=== PATIENT | female | born 1940 | race Caucasian/White ===

== ENCOUNTER 2017-08-10 19:19 | Emergency (ER) | payer OTHER, BC ==
--- NOTE | 2017-08-10 19:38 | EDPHY ---
H & P Stated Complaint: R leg pain and swelling Time Seen by Provider: 08/10/17 19:29 HPI/ROS: CHIEF COMPLAINT: Right leg swelling HISTORY OF PRESENT ILLNESS: The patient is a 77-year-old female who comes to the emergency department complaining of some mild swelling in her right leg as well as pain in hamstring and calf area. This began 2 days ago. She flew here today and is visiting her mother. No fever. No rash. No injury. She does take aspirin daily. She has history of TIA and peptic ulcer disease. She does have a history of chronic low back pain with bulging discs. She denies weakness numbness or paresthesias. No bowel or bladder abnormalities. REVIEW OF SYSTEMS: Constitutional: denies: chills, fever, recent illness, recent injury EENTM: denies: blurred vision, double vision, nose congestion Respiratory: denies: cough, shortness of breath Cardiac: denies: chest pain, irregular heart rate, lightheadedness, palpitations Gastrointestinal/Abdominal: denies: abdominal pain, diarrhea, nausea, vomiting, blood streaked stools Genitourinary: denies: dysuria, frequency, hematuria, pain Musculoskeletal: See HPI Skin: denies: lesions, rash, jaundice, bruising Neurological: denies: headache, numbness, paresthesia, tingling, dizziness, weakness Hematologic/Lymphatic: denies: blood clots, easy bleeding, easy bruising Immunologic/allergic: denies: HIV/AIDS, transplant EXAM: GENERAL: Well-appearing, well-nourished and in no acute distress. HEAD: Atraumatic, normocephalic. EYES: Pupils equal round and reactive to light, extraocular movements intact, sclera anicteric, conjunctiva are normal. ENT: TMs normal, nares patent, oropharynx clear without exudates. Moist mucous membranes. NECK: Normal range of motion, supple without lymphadenopathy or JVD. LUNGS: Breath sounds clear to auscultation bilaterally and equal. No wheezes rales or rhonchi. HEART: Regular rate and rhythm without murmurs, rubs or gallops. ABDOMEN: Soft, nontender, normoactive bowel sounds. No guarding, no rebound. No masses appreciated. BACK: No CVA tenderness, no spinal tenderness, step-offs or deformities EXTREMITIES: Rate leak no visible swelling or edema. Some pain to hamstring and calf, denies pain at her knee or ankle. NEUROLOGICAL: Cranial nerves II through XII grossly intact. Normal speech, normal gait. 5/5 strength, normal movement in all extremities, normal sensation PSYCH: Normal mood, normal affect. SKIN: Warm, dry, normal turgor, no visible rashes or lesions. Source: Patient - Personal History Current Tetanus/Diphtheria Vaccine: Yes - Medical/Surgical History Hx Asthma: No Hx Chronic Respiratory Disease: No Hx Diabetes: No Hx Cardiac Disease: No Hx Renal Disease: No Hx Cirrhosis: No Hx Alcoholism: No Hx HIV/AIDS: No Hx Splenectomy or Spleen Trauma: No Other PMH: diverticulitis, TIA 20 years ago, - Family History Significant Family History: No pertinent family hx - Social History Smoking Status: Never smoked Alcohol Use: Sober Drug Use: None Constitutional: Initial Vital Signs Temperature (C) 36.7 C 08/10/17 19:22 Heart Rate 81 08/10/17 19:22 Respiratory Rate 16 08/10/17 19:22 Blood Pressure 152/86 H 08/10/17 19:22 O2 Sat (%) 93 08/10/17 19:22 O2 Delivery Mode Room Air Allergies/Adverse Reactions: Penicillins Allergy (Verified 08/10/17 19:24) Home Medications: Medication Instructions Recorded Aspirin 08/10/17 Ketorolac Tromethamine 10 mg PO Q6H PRN #16 tab 08/10/17 Linzess 08/10/17 Omeprazole 08/10/17 predniSONE 60 mg PO DAILY #15 tab 08/10/17 Medical Decision Making - Diagnostics Imaging: Discussed imaging studies w/ call center operator Radiologist ED Course/Re-evaluation: We discussed her ultrasound results which are reassuring. Patient denies any fall or trauma. We discussed possibly x-ray ring her knee or hip but she declines. She is able to ambulate but with pain here in the department. She has full strength and range of motion. I suspect that she may be beginning to have a radiculopathy from her chronic low back pain and bulging discs. We agreed to try steroids and anti-inflammatories and pain medication. She does not wish to have further imaging currently. I advised her to return if her symptoms are worsening instead of improving or she develops any weakness or paralysis bowel or bladder abnormalities. She and her family agree with this plan. Differential Diagnosis: Partial list of the Differential diagnosis considered include but were not limited to; sciatica, DVT and although unlikely based on the history and physical exam, I also considered infection, fracture, dislocation, tendonitis. I discussed these differential diagnoses and the plan with the patient as well as the usual and expected course. The patient understands that the diagnosis is provisional and that in medicine we are not always correct and that further workup is often warranted. Usual and customary warnings were given. All of the patient's questions were answered. The patient was instructed to return to the emergency department should the symptoms at all worsen or return, otherwise to followup with the physician as we discussed. - Data Points Laboratory Results: Laboratory Results 08/10/17 19:50 08/10/17 19:50 Medications Given: Discontinued Medications Ketorolac Tromethamine (Toradol) 30 mg IVP EDNOW ONE Stop: 08/10/17 20:55 Last Admin: 08/10/17 21:09 Dose: 30 mg Methylprednisolone Sodium Succinate (Solu-Medrol) 125 mg IVP EDNOW ONE Stop: 08/10/17 20:54 Last Admin: 08/10/17 21:12 Dose: 125 mg Departure - Departure Disposition: Home, Routine, Self-Care Clinical Impression: Right leg pain Condition: Fair Instructions: Lumbar Radiculopathy (ED) Referrals: NONE *PRIMARY CARE P,. [Primary Care Provider] - As per Instructions Juan F Hope MD [Medical Doctor] - As per Instructions Prescriptions: Ketorolac Tromethamine 10 mg PO Q6H PRN #16 tab PRN Reason: Pain/inflammation predniSONE 60 mg PO DAILY #15 tab
[2017-08-10 19:57] LABS: PLATELET COUNT 232 10^3/uL (150-400)
[2017-08-10 20:14] LABS: INR 1.05 (0.83-1.16); PROTIME(PATIENT) 13.9 SEC (12.0-15.0)
[2017-08-10] MEDS ORDERED: methylPREDNISolone SOD SUCC 125 MG/2 ML VIAL IVP ONE (20:53)
[2017-08-10] MEDS ORDERED: KETOROLAC 30 MG/1 ML SDV IVP ONE (20:54)
[2017-08-10 21:50] VITALS: BP 146/87
== END 2017-08-10 21:50 | disposition home or self-care (01) ==
DX: M79.604 Pain in right leg (principal); Z79.82 Long term (current) use of aspirin
CPT/HCPCS: 93971; 96374; 96375; 99285; J1885; J2930